=== PATIENT | male | born 1970 | race Caucasian/White ===

== ENCOUNTER 2017-07-18 10:23 | Emergency (ER) | payer SELFPAY ==
[~2017-07-18] VITALS: Wt 64.9 kg
[~2017-07-18 10:23] MED LIST: AMOXICILLIN500 MG PO; ATARAX25 MG PO; BACTRIM DS 8001 TA1 PO; BENADRYL50 MG PO; COZAAR25 MG PO; CYCLOBENZAPRINE10 MG PO; IBU-8800 MG PO; KEFLEX500 MG PO; LAMOTRIGINE25 M1 PO; MOTRIN800 MG PO; NORCO 5-325 TA1 EACH PO; PREDNISONE10 MG PO; PREDNISONE20 MG PO; PROAIR HFA0.09 MG/AC IH; ROBITUSSIN AC 10 MG/ PO; TRAMADOL50 MG PO; ULTRAM50 MG PO; VALIUM5 MG PO; VIBRAMYCIN100 MG PO; VICODIN 5/500 505 MG PO; XANAX1 MG PO; ZITHROMAX Z PA250 MG PO; ZITHROMAX250 MG PO; [UNRECOGNIZED DRUG - OTHER] PO
[2017-07-18 10:41] LABS: BASO % 0.4 % (0.0-1.0); EOS # 0.1 10*3/uL (0.0-0.4); EOS % 0.8 % (1.0-4.0); HEMATOCRIT 43.4 % (42.0-52.0); HEMOGLOBIN 14.8 g/dl (14.0-18.0); LYMPH # 1.8 10*3/uL (1.3-4.4); LYMPH % 18.3 % (27.0-41.0); MEAN CELL VOLUME 88.6 fl (80.0-94.0); MEAN CORPUSCULAR HGB 30.2 pg (27.0-31.0); MEAN CORPUSCULAR HGB CONC 34.1 g/dl (33.0-37.0); MEAN PLATELET VOLUME 10.9 fl (9.6-12.3); MONO # 0.5 10*3/uL (0.1-1.0); MONO % 5.5 % (3.0-9.0); NEUT # 7.1 10*3/uL (2.3-7.9); NEUT % 74.7 % (47.0-73.0); PLATELET COUNT AUTOMATED 196 10*3/uL (130-400); RED CELL DISTRI WIDTH 13.2 % (0-14.5); WHITE BLOOD COUNT 9.5 10*3/uL (4.8-10.8)
[2017-07-18 10:56] LABS: ACT PARTIAL THROMBO TIME 24.1 SECONDS (20.8-31.5)
[2017-07-18 11:01] LABS: ALBUMIN 3.9 gm/dl (3.1-4.5); ALKALINE PHOSPHATASE 97 U/L (45-117); BUN 19 mg/dl (7-24); CHLORIDE 100 mmol/L (98-107); CREATININE 1.15 mg/dL (0.70-1.30); LIPASE 185 U/L (73-393); POTASSIUM 3.8 mmol/L (3.5-5.1); SGOT/AST 22 IU/L (3-35); SGPT/ALT 26 U/L (12-78); SODIUM 134 mmol/L (136-145); TOTAL PROTEIN 7.5 gm/dL (6.4-8.2)
[2017-07-18 11:05] LABS: TROPONIN I < 0.015 ng/ml (<0.045)
[2017-07-18 11:43] LABS: BILIRUBIN NEGATIVE (NEGATIVE); BLOOD TRACE-INTACT (NEGATIVE); CLARITY SL CLOUDY (CLEAR); COLOR YELLOW (YELLOW); GLUCOSE NEGATIVE (NEGATIVE); KETONE NEGATIVE (NEGATIVE); LEUKO ESTERASE NEGATIVE (NEGATIVE); NITRITE NEGATIVE (NEGATIVE); UROBILINOGEN 0.2 E.U./dl (0.2-1.0)
[2017-07-18 11:49] LABS: BACTERIA 1+; EPITHELIAL CELLS 0-2; HYALINE CAST TNTC; RBC 0-2 rbc/hpf (0-2)
[2017-07-18 11:50] LABS: MUCOUS TRACE
[2017-07-18 11:51] LABS: URINE AMPHETAMINES < 1000 (1000ng/ml); URINE BARBITURATES < 200 (200ng/ml); URINE BENZODIAZEPINES < 200 (200ng/ml); URINE CANNABINOIDS (THC) < 50 (50ng/ml); URINE COCAINE < 300 (300ng/ml); URINE METHADONE < 300 (300ng/ml); URINE OPIATES < 300 (300ng/ml); URINE PHENCYCLIDINE < 25 (25ng/ml)
== END 2017-07-18 12:41 | disposition home or self-care (01) ==
LOC: ED 10:23
PROVIDERS: Emergency Medicine
DX: R07.89 Other chest pain (principal); F17.200 Nicotine dependence, unspecified, uncomplicated; G43.909 Migraine, unspecified, not intractable, without status migrainosus; I10 Essential (primary) hypertension; K21.9 Gastro-esophageal reflux disease without esophagitis; Z79.899 Other long term (current) drug therapy; Z88.0 Allergy status to penicillin

== ENCOUNTER 2017-09-27 13:11 | Emergency (ER) | payer SELFPAY ==
[~2017-09-27] VITALS: Ht 175.2 cm; Wt 63.5 kg
[2017-09-27] MEDS ORDERED: NAPROSYN500 MG PO (15:18)
[2017-09-27] MEDS ORDERED: ORPHENADRINE C100 M1 PO (15:18)
== END 2017-09-27 15:22 | disposition home or self-care (01) ==
LOC: ED 13:11
DX: S16.1XXA Strain of muscle, fascia and tendon at neck level, initial encounter (principal); S46.911A Strain of unspecified muscle, fascia and tendon at shoulder and upper arm level, right arm, initial encounter; F17.200 Nicotine dependence, unspecified, uncomplicated; K21.9 Gastro-esophageal reflux disease without esophagitis; I10 Essential (primary) hypertension; Z88.0 Allergy status to penicillin; X50.3XXA Overexertion from repetitive movements, initial encounter; Y93.89 Activity, other specified; Y92.89 Other specified places as the place of occurrence of the external cause; Y99.8 Other external cause status

== ENCOUNTER 2018-06-30 23:10 | Emergency (ER) | payer BC ==
[~2018-06-30] VITALS: Ht 175.2 cm; Wt 63.5 kg
[~2018-06-30 23:10] MED LIST changes: +ACULAR 0.5%3 ML OPH; +LOSARTAN-HCTZ1 EAC1 PO; +NAPROSYN500 MG PO; +ORPHENADRINE C100 M1 PO; +Tobrex Ophth S2.5 ML OPH
[2018-06-30] MEDS ORDERED: ANAPROX DS550 MG PO (23:28)
[2018-08-20] MEDS ORDERED: FLONASE ALLERG9.9 ML NAS (12:42)
[2018-08-20] MEDS ORDERED: PREDNISONE20 M1 PO (12:42)
[2018-08-20] MEDS ORDERED: ZYRTEC10 MG PO (12:42)
[2018-10-21] MEDS ORDERED: CLINDAMYCIN HC300 MG PO (17:51)
[2018-10-21] MEDS ORDERED: ANAPROX DS550 MG PO (17:51)
== END 2018-06-30 23:48 | disposition home or self-care (01) ==
LOC: ED 23:10
DX: M15.2 Bouchard's nodes (with arthropathy) (principal); M15.1 Heberden's nodes (with arthropathy); M79.641 Pain in right hand; M79.642 Pain in left hand; F17.200 Nicotine dependence, unspecified, uncomplicated; Z88.0 Allergy status to penicillin; Z79.2 Long term (current) use of antibiotics; Z79.899 Other long term (current) drug therapy

== ENCOUNTER 2018-10-30 19:41 | Emergency (ER) | payer BC ==
[~2018-10-30] VITALS: Ht 175.2 cm; Wt 63.5 kg
[~2018-10-30 19:41] MED LIST changes: +ANAPROX DS550 MG PO; +CLINDAMYCIN HC300 MG PO; +FLONASE ALLERG9.9 ML NAS; +PREDNISONE20 M1 PO; +ZYRTEC10 MG PO
== END 2018-10-30 20:35 | disposition home or self-care (01) ==
LOC: ED 19:41
DX: H57.89 Other specified disorders of eye and adnexa (principal); F17.200 Nicotine dependence, unspecified, uncomplicated; Z88.0 Allergy status to penicillin; Z79.2 Long term (current) use of antibiotics; Z79.899 Other long term (current) drug therapy

== ENCOUNTER 2019-01-16 11:51 | Emergency (ER) | payer BC ==
[~2019-01-16] VITALS: Ht 175.2 cm; Wt 63.5 kg
--- NOTE | ~2019-01-16 | EKG ---
[place], [place] ELECTROCARDIOGRAM REPORT NAME: CAITLYN DONALD UNIT #: [id number] ROOM: DOCTOR: MICHELLE DRAFT REPORT BIRTHDATE: [birth year] [facility] Test Date: 2019-01-16 Test Time: 12:26:08 Pat Name: CAITLYN DONALD Department: Room: Gender: Call Center Rn: : 1970 Requested By: GABBY DAY Order Number: [id number] Reading MD: Samuel Holley MD Measurements Intervals [place]ner Rate: 64 P: 1 MN: 157 QRS: 15 QRSD: 82 T: 53 QT: 368 QTc: 380 Interpretive Statements Sinus rhythm ST elev, probable normal early repol pattern Baseline wander in lead(s) V5 Electronically Signed On 01-20-2019 9:49:36 PDT by Samuel Holley MD CM:EKGRPT:ELECTROCARDIOGRAM REPORT [id number] GABBY HUGHES DRAFT REPORT GABBY DAY DO
[2019-01-16 12:28] LABS: BASO % 0.4 % (0.0-1.0); EOS # 0.3 10*3/uL (0.0-0.4); EOS % 3.7 % (1.0-4.0); HEMATOCRIT 39.6 % (42.0-52.0); HEMOGLOBIN 13.3 g/dl (14.0-18.0); LYMPH # 1.9 10*3/uL (1.3-4.4); LYMPH % 25.7 % (27.0-41.0); MEAN CORPUSCULAR HGB 30.2 pg (27.0-31.0); MEAN CORPUSCULAR HGB CONC 33.6 g/dl (33.0-37.0); MEAN PLATELET VOLUME 11.5 fl (9.6-12.3); MONO # 0.6 10*3/uL (0.1-1.0); NEUT # 4.6 10*3/uL (2.3-7.9); NEUT % 61.9 % (47.0-73.0); PLATELET COUNT AUTOMATED 153 10*3/uL (130-400); RED CELL DISTRI WIDTH 12.7 % (0-14.5); WHITE BLOOD COUNT 7.4 10*3/uL (4.8-10.8)
[2019-01-16 12:40] LABS: ACT PARTIAL THROMBO TIME 25.7 SECONDS (20.0-32.1)
[2019-01-16 12:43] LABS: ALBUMIN 3.9 gm/dl (3.1-4.5); ALKALINE PHOSPHATASE 69 U/L (45-117); BUN 12 mg/dl (7-24); CHLORIDE 109 mmol/L (98-107); CREATININE 1.03 mg/dL (0.70-1.30); LIPASE 135 U/L (73-393); POTASSIUM 4.3 mmol/L (3.5-5.1); SGOT/AST 9 IU/L (3-35); SGPT/ALT 21 U/L (12-78); SODIUM 141 mmol/L (136-145); TOTAL PROTEIN 6.9 gm/dL (6.4-8.2)
[2019-01-16 12:49] LABS: TROPONIN I < 0.015 ng/ml (<0.045)
== END 2019-01-16 13:34 | disposition home or self-care (01) ==
LOC: ED 11:51
PROVIDERS: Emergency Medicine
DX: I10 Essential (primary) hypertension (principal); R79.1 Abnormal coagulation profile; K21.9 Gastro-esophageal reflux disease without esophagitis; F17.200 Nicotine dependence, unspecified, uncomplicated; Z79.899 Other long term (current) drug therapy; Z88.0 Allergy status to penicillin

== ENCOUNTER 2019-02-19 17:22 | Emergency (ER) | payer BC ==
[~2019-02-19] VITALS: Ht 175.2 cm; Wt 63.5 kg
[2019-02-19] MEDS ORDERED: ACYCLOVIR800 MG PO (17:40)
[2019-02-19] MEDS ORDERED: NEURONTIN300 MG PO (17:40)
== END 2019-02-19 18:00 | disposition home or self-care (01) ==
LOC: ED 17:22
DX: B02.9 Zoster without complications (principal); F17.200 Nicotine dependence, unspecified, uncomplicated; Z88.0 Allergy status to penicillin; Z79.2 Long term (current) use of antibiotics; Z79.899 Other long term (current) drug therapy

== ENCOUNTER 2019-02-24 04:54 | Emergency (ER) | payer BC ==
[~2019-02-24] VITALS: Ht 175.2 cm; Wt 63.5 kg
[~2019-02-24 04:54] MED LIST changes: +ACYCLOVIR800 MG PO; +NEURONTIN300 MG PO
[2019-02-24] MEDS ORDERED: VICODIN 5-3001 EACH PO (06:22)
== END 2019-02-24 06:31 | disposition home or self-care (01) ==
LOC: ED 04:54
DX: B02.9 Zoster without complications (principal); R06.00 Dyspnea, unspecified; R05 Cough; K21.9 Gastro-esophageal reflux disease without esophagitis; J45.909 Unspecified asthma, uncomplicated; I10 Essential (primary) hypertension; F17.200 Nicotine dependence, unspecified, uncomplicated; Z88.0 Allergy status to penicillin; Z79.899 Other long term (current) drug therapy; Z79.2 Long term (current) use of antibiotics

== ENCOUNTER 2019-04-25 18:18 | Emergency (ER) | payer BC ==
[~2019-04-25] VITALS: Wt 72.6 kg
[~2019-04-25 18:18] MED LIST changes: +VICODIN 5-3001 EACH PO
[2019-04-25 18:34] LABS: BASO % 0.5 % (0.0-1.0); EOS # 0.4 10*3/uL (0.0-0.4); HEMOGLOBIN 13.5 g/dl (14.0-18.0); LYMPH # 2.7 10*3/uL (1.3-4.4); MEAN CELL VOLUME 89.9 fl (80.0-94.0); MEAN CORPUSCULAR HGB 30.3 pg (27.0-31.0); MEAN CORPUSCULAR HGB CONC 33.8 g/dl (33.0-37.0); MEAN PLATELET VOLUME 11.2 fl (9.6-12.3); MONO # 0.6 10*3/uL (0.1-1.0); MONO % 7.2 % (3.0-9.0); NEUT # 3.9 10*3/uL (2.3-7.9); NEUT % 51.2 % (47.0-73.0); PLATELET COUNT AUTOMATED 167 10*3/uL (130-400); RED BLOOD COUNT 4.45 10*6/uL (4.50-5.90); RED CELL DISTRI WIDTH 12.3 % (0-14.5); WHITE BLOOD COUNT 7.6 10*3/uL (4.8-10.8)
[2019-04-25 18:44] LABS: ACT PARTIAL THROMBO TIME 26.2 SECONDS (20.0-32.1)
[2019-04-25 18:54] LABS: ALKALINE PHOSPHATASE 74 U/L (45-117); BUN 15 mg/dl (7-24); CHLORIDE 104 mmol/L (98-107); CREATININE 0.99 mg/dL (0.70-1.30); POTASSIUM 3.4 mmol/L (3.5-5.1); SGOT/AST 18 IU/L (3-35); SGPT/ALT 18 U/L (12-78); SODIUM 140 mmol/L (136-145); TOTAL PROTEIN 7.3 gm/dL (6.4-8.2)
[2019-04-25 18:58] LABS: TROPONIN I < 0.015 ng/ml (<0.045)
[2019-04-25] MEDS ORDERED: MEDROL DOSEPAK4 MG PO (20:55)
== END 2019-04-25 21:10 | disposition left against medical advice (07) ==
LOC: ED 18:18
PROVIDERS: Emergency Medicine
DX: M54.2 Cervicalgia (principal); M79.602 Pain in left arm; G43.909 Migraine, unspecified, not intractable, without status migrainosus; I10 Essential (primary) hypertension; K21.9 Gastro-esophageal reflux disease without esophagitis; F17.200 Nicotine dependence, unspecified, uncomplicated; Z88.0 Allergy status to penicillin; Z79.899 Other long term (current) drug therapy; Z79.2 Long term (current) use of antibiotics; X50.0XXA Overexertion from strenuous movement or load, initial encounter; Y93.89 Activity, other specified; Y92.69 Other specified industrial and construction area as the place of occurrence of the external cause; Y99.8 Other external cause status

== ENCOUNTER 2019-05-21 04:18 | Emergency (ER) | payer BC ==
[~2019-05-21] VITALS: Ht 175.2 cm; Wt 62.1 kg
[~2019-05-21 04:18] MED LIST changes: +MEDROL DOSEPAK4 MG PO
[2019-05-21] MEDS ORDERED: LISINOPRIL20 MG PO (04:25)
[2019-05-21] MEDS ORDERED: HYDROCHLOROTH12.5 M3 PO (04:25)
[2019-05-21] MEDS ORDERED: VIBRAMYCIN100 MG PO (05:48)
[2019-05-21] MEDS ORDERED: CLARITIN10 MG PO (05:48)
== END 2019-05-21 05:55 | disposition home or self-care (01) ==
LOC: ED 04:18
DX: J32.9 Chronic sinusitis, unspecified (principal); I10 Essential (primary) hypertension; K21.9 Gastro-esophageal reflux disease without esophagitis; F17.200 Nicotine dependence, unspecified, uncomplicated; Z79.899 Other long term (current) drug therapy; Z88.0 Allergy status to penicillin

== ENCOUNTER 2019-09-22 12:41 | Emergency (ER) | payer BC ==
[~2019-09-22] VITALS: Ht 175.2 cm; Wt 63.5 kg
[~2019-09-22 12:41] MED LIST changes: +CLARITIN10 MG PO; +HYDROCHLOROTH12.5 M3 PO; +LISINOPRIL20 MG PO
[2019-09-22 13:46] LABS: BASO % 0.6 % (0.0-1.0); EOS # 0.2 10*3/uL (0.0-0.4); EOS % 3.1 % (1.0-4.0); LYMPH # 1.9 10*3/uL (1.3-4.4); MEAN CELL VOLUME 89.4 fl (80.0-94.0); MEAN CORPUSCULAR HGB 30.2 pg (27.0-31.0); MEAN CORPUSCULAR HGB CONC 33.8 g/dl (33.0-37.0); MEAN PLATELET VOLUME 11.1 fl (9.6-12.3); MONO # 0.4 10*3/uL (0.1-1.0); MONO % 6.5 % (3.0-9.0); NEUT # 4.2 10*3/uL (2.3-7.9); NEUT % 61.7 % (47.0-73.0); PLATELET COUNT AUTOMATED 199 10*3/uL (130-400); RED BLOOD COUNT 5.37 10*6/uL (4.50-5.90); RED CELL DISTRI WIDTH 12.7 % (0-14.5); WHITE BLOOD COUNT 6.8 10*3/uL (4.8-10.8)
[2019-09-22 14:01] LABS: ALKALINE PHOSPHATASE 80 U/L (45-117); BUN 16 mg/dl (7-24); CHLORIDE 108 mmol/L (98-107); CREATININE 1.09 mg/dL (0.70-1.30); LIPASE 76 U/L (73-393); POTASSIUM 3.9 mmol/L (3.5-5.1); SGOT/AST 19 IU/L (3-35); SGPT/ALT 34 U/L (12-78); SODIUM 140 mmol/L (136-145); TOTAL PROTEIN 7.7 gm/dL (6.4-8.2)
[2019-09-22 14:13] LABS: BILIRUBIN 1+ (NEGATIVE); BLOOD TRACE-INTACT (NEGATIVE); CLARITY SL CLOUDY (CLEAR); COLOR YELLOW (YELLOW); GLUCOSE NEGATIVE (NEGATIVE); KETONE NEGATIVE (NEGATIVE); LEUKO ESTERASE NEGATIVE (NEGATIVE); NITRITE NEGATIVE (NEGATIVE); SPECIFIC GRAVITY 1.025 (1.005-1.030); UROBILINOGEN 0.2 E.U./dl (0.2-1.0)
[2019-09-22] MEDS ORDERED: ZOFRAN4 MG PO (14:17)
[2019-09-22 14:18] LABS: BACTERIA 1+
== END 2019-09-22 14:50 | disposition home or self-care (01) ==
LOC: ED 12:41
PROVIDERS: Emergency Medicine
DX: R11.10 Vomiting, unspecified (principal); I10 Essential (primary) hypertension; K21.9 Gastro-esophageal reflux disease without esophagitis; F41.9 Anxiety disorder, unspecified; G43.909 Migraine, unspecified, not intractable, without status migrainosus; Z88.0 Allergy status to penicillin; Z79.899 Other long term (current) drug therapy

== ENCOUNTER 2019-10-19 13:29 | Emergency (ER) | payer BC ==
[~2019-10-19] VITALS: Ht 175.2 cm; Wt 63.5 kg
[~2019-10-19 13:29] MED LIST changes: +ZOFRAN4 MG PO
[2019-10-19] MEDS ORDERED: MEDROL DOSEPAK4 MG PO (15:53)
[2019-10-19] MEDS ORDERED: ROBAXIN-750750 MG PO (15:53)
== END 2019-10-19 15:58 | disposition home or self-care (01) ==
LOC: ED 13:29
DX: M25.512 Pain in left shoulder (principal); I10 Essential (primary) hypertension; G43.909 Migraine, unspecified, not intractable, without status migrainosus; K21.9 Gastro-esophageal reflux disease without esophagitis; F17.200 Nicotine dependence, unspecified, uncomplicated; Z88.0 Allergy status to penicillin; Z79.899 Other long term (current) drug therapy; X50.9XXA Other and unspecified overexertion or strenuous movements or postures, initial encounter; Y93.89 Activity, other specified; Y92.89 Other specified places as the place of occurrence of the external cause; Y99.8 Other external cause status

== ENCOUNTER 2019-10-21 20:50 | Emergency (ER) | payer BC ==
[~2019-10-21] VITALS: Ht 175.2 cm; Wt 63.5 kg
[~2019-10-21 20:50] MED LIST changes: +ROBAXIN-750750 MG PO
[2019-10-21] MEDS ORDERED: PREDNISONE10 MG PO (22:30)
[2019-10-21] MEDS ORDERED: CYCLOBENZAPRINE10 MG PO (22:30)
== END 2019-10-21 22:57 | disposition home or self-care (01) ==
LOC: ED 20:50
DX: M54.12 Radiculopathy, cervical region (principal); I10 Essential (primary) hypertension; F41.9 Anxiety disorder, unspecified; G43.909 Migraine, unspecified, not intractable, without status migrainosus; Z88.0 Allergy status to penicillin; Z79.899 Other long term (current) drug therapy

== ENCOUNTER 2020-01-15 15:30 | Emergency (ER) | payer SELFPAY ==
[~2020-01-15] VITALS: Wt 61.2 kg
[2020-01-15] MEDS ORDERED: POLYSPORIN OINT15 GM T (16:04)
== END 2020-01-15 17:15 | disposition home or self-care (01) ==
LOC: ED 15:30
DX: S60.551A Superficial foreign body of right hand, initial encounter (principal); I10 Essential (primary) hypertension; K21.9 Gastro-esophageal reflux disease without esophagitis; F17.200 Nicotine dependence, unspecified, uncomplicated; Z88.0 Allergy status to penicillin; Z79.899 Other long term (current) drug therapy; W22.8XXA Striking against or struck by other objects, initial encounter; Y93.89 Activity, other specified; Y92.89 Other specified places as the place of occurrence of the external cause; Y99.8 Other external cause status

== ENCOUNTER 2020-07-27 16:17 | Emergency (ER) | payer BC ==
[~2020-07-27] VITALS: Ht 175.2 cm; Wt 63.5 kg
[~2020-07-27 16:17] MED LIST changes: +POLYSPORIN OINT15 GM T
== END 2020-07-27 18:27 | disposition home or self-care (01) ==
LOC: ED 16:17
DX: G56.03 Carpal tunnel syndrome, bilateral upper limbs (principal); M77.8 Other enthesopathies, not elsewhere classified; I10 Essential (primary) hypertension; F41.9 Anxiety disorder, unspecified; G43.909 Migraine, unspecified, not intractable, without status migrainosus; F17.200 Nicotine dependence, unspecified, uncomplicated; Z88.0 Allergy status to penicillin; Z79.899 Other long term (current) drug therapy

== ENCOUNTER 2020-08-20 16:34 | Emergency (ER) | payer BC ==
[~2020-08-20] VITALS: Ht 175.2 cm; Wt 63.5 kg
== END 2020-08-20 17:30 | disposition home or self-care (01) ==
LOC: ED 16:34
DX: J02.9 Acute pharyngitis, unspecified (principal); R09.89 Other specified symptoms and signs involving the circulatory and respiratory systems; R05 Cough; F17.200 Nicotine dependence, unspecified, uncomplicated; Z88.0 Allergy status to penicillin; Z79.899 Other long term (current) drug therapy; Z20.822 Contact with and (suspected) exposure to COVID-19

== ENCOUNTER → 2020-10-29 | Outpatient (CLI) | payer BC ==
[2020-10-29 17:00] LABS: BASO % 0.6 % (0.0-1.0); EOS # 0.3 10*3/uL (0.0-0.4); EOS % 4.1 % (1.0-4.0); LYMPH # 2.4 10*3/uL (1.3-4.4); LYMPH % 34.7 % (27.0-41.0); MEAN CELL VOLUME 89.4 fl (80.0-94.0); MEAN CORPUSCULAR HGB 29.8 pg (27.0-31.0); MEAN CORPUSCULAR HGB CONC 33.3 g/dl (33.0-37.0); MEAN PLATELET VOLUME 12.5 fl (9.6-12.3); MONO # 0.5 10*3/uL (0.1-1.0); MONO % 7.9 % (3.0-9.0); NEUT # 3.6 10*3/uL (2.3-7.9); NEUT % 52.6 % (47.0-73.0); PLATELET COUNT AUTOMATED 179 10*3/uL (130-400); RED BLOOD COUNT 4.36 10*6/uL (4.50-5.90); RED CELL DISTRI WIDTH 12.9 % (0-14.5); WHITE BLOOD COUNT 6.9 10*3/uL (4.8-10.8)
[2020-10-29 17:31] LABS: ALBUMIN 3.6 gm/dl (3.1-4.5); BUN 16 mg/dl (7-24); CHLORIDE 105 mmol/L (98-107); CREATININE 0.96 mg/dL (0.70-1.30); POTASSIUM 3.4 mmol/L (3.5-5.1); SGOT/AST 21 IU/L (3-35); SGPT/ALT 31 U/L (12-78); SODIUM 138 mmol/L (136-145); TOTAL PROTEIN 7.1 gm/dL (6.4-8.2)
[2020-10-29 17:32] LABS: ALKALINE PHOSPHATASE 99 U/L (45-117)
== END | disposition home or self-care (01) ==
LOC: LAB 14:47
PROVIDERS: Student in an Organized Health Care Education/Training Program; ATTEND Family Medicine
DX: M47.812 Spondylosis without myelopathy or radiculopathy, cervical region (principal); M43.22 Fusion of spine, cervical region; M25.78 Osteophyte, vertebrae; M48.02 Spinal stenosis, cervical region; R53.83 Other fatigue

== ENCOUNTER 2021-01-29 10:38 | Emergency (ER) | payer BC ==
[2021-01-29] MEDS ORDERED: VIBRAMYCIN100 MG PO (11:17)
== END 2021-01-29 11:49 | disposition home or self-care (01) ==
LOC: ED 10:38
DX: J32.9 Chronic sinusitis, unspecified (principal); Z20.822 Contact with and (suspected) exposure to COVID-19; F17.200 Nicotine dependence, unspecified, uncomplicated; Z88.0 Allergy status to penicillin; Z79.2 Long term (current) use of antibiotics; Z79.899 Other long term (current) drug therapy

== ENCOUNTER 2021-05-22 16:42 | Emergency (ER) | payer BC ==
[~2021-05-22] VITALS: Wt 63.5 kg
[2021-05-22 17:10] LABS: BASO % 0.4 % (0.0-1.0); EOS % 0.2 % (1.0-4.0); HEMATOCRIT 44.8 % (42.0-52.0); LYMPH # 1.2 10*3/uL (1.3-4.4); LYMPH % 21.3 % (27.0-41.0); MEAN CELL VOLUME 86.7 fl (80.0-94.0); MEAN CORPUSCULAR HGB 29.6 pg (27.0-31.0); MEAN CORPUSCULAR HGB CONC 34.2 g/dl (33.0-37.0); MEAN PLATELET VOLUME 11.1 fl (9.6-12.3); MONO # 0.9 10*3/uL (0.1-1.0); MONO % 15.9 % (3.0-9.0); NEUT # 3.4 10*3/uL (2.3-7.9); PLATELET COUNT AUTOMATED 172 10*3/uL (130-400); RED BLOOD COUNT 5.17 10*6/uL (4.50-5.90); RED CELL DISTRI WIDTH 12.7 % (0-14.5); WHITE BLOOD COUNT 5.4 10*3/uL (4.8-10.8)
[2021-05-22 17:30] LABS: ALBUMIN 3.6 gm/dl (3.1-4.5); ALKALINE PHOSPHATASE 89 U/L (45-117); BUN 19 mg/dl (7-24); CHLORIDE 106 mmol/L (98-107); CREATININE 1.17 mg/dL (0.70-1.30); POTASSIUM 4.7 mmol/L (3.5-5.1); SGOT/AST 23 IU/L (3-35); SGPT/ALT 32 U/L (12-78); SODIUM 140 mmol/L (136-145); TOTAL PROTEIN 7.2 gm/dL (6.4-8.2)
[2021-05-22] MEDS ORDERED: ZOFRAN4 MG PO (18:27)
== END 2021-05-22 18:46 | disposition home or self-care (01) ==
LOC: ED 16:42
PROVIDERS: Student in an Organized Health Care Education/Training Program
DX: U07.1 COVID-19 (principal); K52.9 Noninfective gastroenteritis and colitis, unspecified; Z88.0 Allergy status to penicillin; Z79.899 Other long term (current) drug therapy; Z87.891 Personal history of nicotine dependence

== ENCOUNTER 2021-07-31 12:48 | Emergency (ER) | payer BC ==
[~2021-07-31] VITALS: Ht 175.2 cm; Wt 63.5 kg
[2021-07-31] MEDS ORDERED: Motrin,Rufen800 MG PO (14:36)
== END 2021-07-31 14:40 | disposition home or self-care (01) ==
LOC: ED 12:48
DX: S83.92XA Sprain of unspecified site of left knee, initial encounter (principal); Z88.0 Allergy status to penicillin; Z79.899 Other long term (current) drug therapy; Z87.891 Personal history of nicotine dependence; X50.1XXA Overexertion from prolonged static or awkward postures, initial encounter; Y93.89 Activity, other specified; Y92.89 Other specified places as the place of occurrence of the external cause; Y99.8 Other external cause status

== ENCOUNTER 2021-09-05 12:00 | Emergency (ER) | payer BC ==
[~2021-09-05] VITALS: Ht 175.2 cm; Wt 63.5 kg
[~2021-09-05 12:00] MED LIST changes: +Motrin,Rufen800 MG PO
[2021-09-05] MEDS ORDERED: LISINOPRIL40 MG PO (12:15)
[2021-09-05] MEDS ORDERED: PREDNISONE50 MG PO (13:13)
[2021-09-05] MEDS ORDERED: CYCLOBENZAPRINE5 M3 PO (13:13)
[2021-09-05] MEDS ORDERED: TRAMADOL HCL50 MG PO (13:13)
== END 2021-09-05 13:46 | disposition home or self-care (01) ==
LOC: ED 12:00
DX: S86.811A Strain of other muscle(s) and tendon(s) at lower leg level, right leg, initial encounter (principal); Z88.0 Allergy status to penicillin; Z79.899 Other long term (current) drug therapy; Z87.891 Personal history of nicotine dependence; X50.1XXA Overexertion from prolonged static or awkward postures, initial encounter; Y93.89 Activity, other specified; Y92.89 Other specified places as the place of occurrence of the external cause; Y99.8 Other external cause status

== ENCOUNTER 2021-11-14 05:48 | Emergency (ER) | payer BC ==
[~2021-11-14] VITALS: Ht 182.8 cm; Wt 68.0 kg
[~2021-11-14 05:48] MED LIST changes: +CYCLOBENZAPRINE5 M3 PO; +LISINOPRIL40 MG PO; +PREDNISONE50 MG PO; +TRAMADOL HCL50 MG PO
== END 2021-11-14 06:46 | disposition home or self-care (01) ==
LOC: ED 05:48
DX: G43.909 Migraine, unspecified, not intractable, without status migrainosus (principal); Z88.0 Allergy status to penicillin; Z79.899 Other long term (current) drug therapy

== ENCOUNTER 2022-01-03 06:21 | Emergency (ER) | payer BC ==
[~2022-01-03] VITALS: Ht 175.2 cm; Wt 63.5 kg
== END 2022-01-03 08:44 | disposition home or self-care (01) ==
LOC: ED 06:21
DX: J02.9 Acute pharyngitis, unspecified (principal); Z20.822 Contact with and (suspected) exposure to COVID-19; F17.200 Nicotine dependence, unspecified, uncomplicated; Z79.899 Other long term (current) drug therapy; Z88.0 Allergy status to penicillin